=== PATIENT | female | born 2000 | race Caucasian/White ===

== ENCOUNTER 2021-02-20 12:08 | Inpatient (IN) ==
[2021-02-20 12:43] LABS: Bacteria,Urine Occasional /HPF (Few); Bilirubin,Urine Negative (Negative); Blood, Urine Negative (Negative); Glucose,Urine (UA) Negative (Negative); Ketones,Urine Negative (Negative); Mucus,Urine Occasional /LPF (Occasional); Nitrite,Urine Negative (Negative); Protein,Urine Negative; RBC,Urine 1 /HPF (0-4); Squamous Epithelial Cell,Urine Moderate /HPF (0-10); Urine Appearance Slightly Hazy (Clear); Urine Color Yellow (Yellow); Urine Specific Gravity 1.016 (1.001-1.035); Urine Urobilinogen < 2.0 EU/DL (0.2-1.0)
[2021-02-20] MEDS ORDERED: BUTORPHANOL 2 MG/ML VIAL IV PRN (15:56)
[2021-02-20] MEDS ORDERED: ONDANSETRON 4 MG/2 ML VIAL IV PRN (15:56)
[2021-02-20] MEDS ORDERED: MEPERIDINE 50 MG/1 ML VIAL IV PRN (15:56)
[2021-02-20 16:37] LABS: Hematocrit 34.4 VOL% (35.7-47.0); Hemoglobin 10.6 GM/DL (12.0-16.0); Immature Granulocytes % 0.4 %; Immature Granulocytes Absolute 0.02 #; Lymphocytes # 0.9 10*3/uL (1.4-4.0); Lymphocytes % 15.5 % (21.3-54.2); Mean Corpuscular HGB Conc 30.8 GM/DL (32-36); Mean Corpuscular Volume 76.6 FL (87-102); Mean Platelet Volume 11.8 FL (9.6-12.0); Neutrophils % 80.1 % (38.7-73.9); Platelet Count 138 T/CUMM (130-400); Red Blood Count 4.49 MC/CUMM (3.8-5.5); Red Cell Distribution Width 14.9 % (9.3-17.3); White Blood Count 5.6 T/CUMM (4-12)
[2021-02-20 19:52] LABS: Hepatitis B Surface Ag Quant < 0.10 Index; Hepatitis B Surface Ag Result Non-Reactive (NonReactive)
[2021-02-21] MEDS ORDERED: OXYTOCIN/LR 20 UNIT/1,000 ML BAG IV PRN (01:35)
[2021-02-21] MEDS: LACTATED RINGERS 1,000 ML IV SCH ×2 (04:10→07:52)
[2021-02-21] MEDS ORDERED: CITRIC ACID/SODIUM CITRATE 30 ML UDCUP PO ONE (05:11)
[2021-02-21] MEDS ORDERED: diphenhydrAMINE 50 MG/1 ML VIAL IV PRN ×2 (05:11)
[2021-02-21] MEDS ORDERED: NALOXONE 0.4 MG/ML VIAL IV PRN (05:11)
[2021-02-21] MEDS ORDERED: FAMOTIDINE 20 MG/2 ML VIAL IV ONE ×2 (05:11→05:12)
[2021-02-21] MEDS ORDERED: hydrOXYzine HCL 25 MG/1 ML VIAL IM PRN (05:11)
[2021-02-21] MEDS ORDERED: ONDANSETRON 4 MG/2 ML VIAL IV PRN ×2 (05:11→09:08)
[2021-02-21] MEDS ORDERED: ePHEDrine 50 MG/ML VIAL IV PRN (05:11)
[2021-02-21] MEDS ORDERED: PROMETHAZINE 25 MG/1 ML VIAL IM PRN (05:11)
[2021-02-21] MEDS ORDERED: LACTATED RINGERS 1,000 ML IV ONE (05:11)
[2021-02-21] MEDS ORDERED: CITRIC ACID/SODIUM CITRATE 30 ML UDCUP ONE (05:12)
[2021-02-21] MEDS ORDERED: fentaNYL 2 MCG/ROPIV 0.2% EPID 100 ML EPIDURAL SCH (05:30)
[2021-02-21] MEDS ORDERED: TRANEXAMIC ACID 1,000 MG/10 ML VIAL ONE (08:39)
[2021-02-21] MEDS ORDERED: miSOPROStoL 200 MCG TABLET ONE (08:39)
[2021-02-21] MEDS ORDERED: OXYTOCIN/LR 20 UNIT/1,000 ML BAG IV ONE ×2 (08:39→09:08)
[2021-02-21] MEDS ORDERED: CARBOPROST TROMETHAMINE 250 MCG/ML AMP IM ONE (08:40)
[2021-02-21] MEDS ORDERED: METHYLERGONOVINE 0.2 MG/1 ML AMP ONE (08:40)
[2021-02-21] MEDS ORDERED: oxyCODONE/ACETAMINOPHEN 5-325 MG TABLET PO PRN ×2 (09:08)
[2021-02-21] MEDS ORDERED: BISACODYL 10 MG SUPP RECTAL PRN (09:08)
[2021-02-21] MEDS ORDERED: BENZOCAINE 20%/MENTHOL 0.5% SPRAY 56 GM CAN TOP PRN (09:08)
[2021-02-21] MEDS ORDERED: RHO(D) IMMUNE GLOBULIN 300 MCG SYRINGE IM ONE (09:08)
[2021-02-21] MEDS ORDERED: ACETAMINOPHEN 325 MG TABLET PO PRN (09:08)
[2021-02-21] MEDS ORDERED: WITCH HAZEL PADS 100/JAR TOP PRN (09:08)
[2021-02-21] MEDS ORDERED: HYDROCORTISONE 2.5% RECTAL CREAM 30 GM TUBE TOP PRN (09:08)
[2021-02-21] MEDS ORDERED: LANOLIN 50% CREAM 0.3 OZ TUBE TOP PRN (09:08)
[2021-02-21] MEDS ORDERED: DIPH/TET/ACEL PERT BOOSTER VACCINE 0.5 ML VIAL IM ONE (09:08)
[2021-02-21] MEDS ORDERED: MEASLES/MUMPS/RUBELLA VACCINE 0.5 ML VIAL SUBCUT ONE (09:08)
[2021-02-21 09:16] LABS: Cord Arterial Blood HCO3 19.1 MMOL/L
[2021-02-21 09:17] LABS: Cord Venous Blood HCO3 20.5 MMOL/L; Cord Venous Blood PCO2 33.6 MMHG; Cord Venous Blood PO2 34.5
[2021-02-21 09:47] LABS: Urine Appearance Slightly Hazy (Clear); Urine Color Amber (Yellow)
[2021-02-21 09:48] LABS: Bilirubin,Urine Negative (Negative); Blood, Urine Negative (Negative); Glucose,Urine (UA) Negative (Negative); Ketones,Urine 3+ mg/dL (Negative); Nitrite,Urine Negative (Negative); Protein,Urine 2+ MG/DL; RBC,Urine Rare /HPF (0-4); Urine Specific Gravity 1.025 (1.001-1.035); Urine Urobilinogen < 2.0 EU/DL (0.2-1.0)
[2021-02-21 09:49] LABS: Mucus,Urine 1+ /LPF (Occasional); Squamous Epithelial Cell,Urine Few /HPF (0-10)
[2021-02-21] MEDS: METOPROLOL SUCCINATE XL 25 MG TABLET PO SCH (09:58)
[2021-02-21 11:44] VITALS: BP 117/58
[2021-02-21] MEDS: IBUPROFEN 800 MG TABLET PO PRN (13:19)
[2021-02-21] MEDS ORDERED: DOCUSATE SODIUM 100 MG CAPSULE PO SCH (21:00)
[2021-02-22 06:09] LABS: Basophils % 0.1 % (0.0-0.8); Hematocrit 32.4 VOL% (35.7-47.0); Immature Granulocytes % 0.8 %; Immature Granulocytes Absolute 0.06 #; Lymphocytes # 1.8 10*3/uL (1.4-4.0); Lymphocytes % 25.9 % (21.3-54.2); Mean Corpuscular HGB Conc 30.9 GM/DL (32-36); Mean Corpuscular Volume 77.1 FL (87-102); Mean Platelet Volume 10.8 FL (9.6-12.0); Monocytes % 4.4 % (1.7-12.7); Neutrophils % 68.8 % (38.7-73.9); Platelet Count 127 T/CUMM (130-400); Red Cell Distribution Width 15.2 % (9.3-17.3); White Blood Count 7.1 T/CUMM (4-12)
[2021-02-22 06:27] LABS: Hypochromasia 1+; Microcytosis 1+
[2021-02-22 06:28] LABS: Platelet Estimate Adequate
[2021-02-22 06:29] LABS: Polychromasia Slight
[2021-02-22] MEDS: IBUPROFEN 800 MG TABLET PO PRN (07:31)
[2021-02-22] MEDS: METOPROLOL SUCCINATE XL 25 MG TABLET PO SCH (08:37)
== END 2021-02-22 15:00 | disposition home or self-care (01) | DRG 805 ==
LOC: N.LDOUT 12:08 → N.LD 12:10
PROVIDERS: ADMIT Specialist; ATTEND Specialist

== ENCOUNTER 2022-09-16 19:54 | Inpatient (IN) ==
[2022-09-17] MEDS ORDERED: METHYLERGONOVINE 0.2 MG/1 ML AMP IM PRN
[2022-09-17] MEDS ORDERED: BUTORPHANOL 2 MG/ML VIAL IV PRN
[2022-09-17] MEDS ORDERED: MEPERIDINE 50 MG/1 ML VIAL IV PRN
[2022-09-17] MEDS ORDERED: TRANEXAMIC ACID 1,000 MG in SODIUM CHLORIDE 0.9% 100 ML IV PRN
[2022-09-17] MEDS ORDERED: miSOPROStoL 200 MCG TABLET RECTAL PRN
[2022-09-17] MEDS ORDERED: CARBOPROST TROMETHAMINE 250 MCG/ML AMP IM PRN
[2022-09-17 00:37] LABS: Basophils % 0.2 % (0.0-0.8); Eosinophils # 0.1 10*3/uL (0.0-0.87); Eosinophils % 1.2 % (0.00-10.9); Hemoglobin 10.9 GM/DL (12.0-16.0); Immature Granulocytes % 0.4 %; Immature Granulocytes Absolute 0.03 #; Lymphocytes # 2.6 10*3/uL (1.4-4.0); Lymphocytes % 32.6 % (21.3-54.2); Mean Corpuscular HGB Conc 32.1 GM/DL (32-36); Mean Corpuscular Volume 78.3 FL (87-102); Mean Platelet Volume 10.8 FL (9.6-12.0); Monocytes # 0.5 10*3/uL (0.11-0.8); Monocytes % 6.6 % (1.7-12.7); Platelet Count 196 T/CUMM (130-400); Red Blood Count 4.34 MC/CUMM (3.8-5.5); Red Cell Distribution Width 14.4 % (9.3-17.3); White Blood Count 8.07 T/CUMM (4-12)
[2022-09-17] MEDS: ONDANSETRON 4 MG/2 ML VIAL IV PRN ×2 (00:37→06:40)
[2022-09-17 00:53] LABS: Bilirubin,Direct < 0.100 MG/DL (0.0-0.20); Uric Acid 4.4 MG/DL (2.6-6.0)
[2022-09-17 00:53] LABS: INR 0.9; PT Patient Result 9.6 SECS (10.1-12.1); Partial Thromboplastin Time 25.5 SECS (23.7-32.9)
[2022-09-17 00:57] LABS: Alanine Aminotransferase 11 U/L (13-56); Albumin 2.6 G/DL (3.4-5.0); Alkaline Phosphatase 222 U/L (45-117); Aspartate Amino Transferase 15 U/L (0-37); Bilirubin,Total < 0.39 MG/DL (0.20-1.00); Blood Urea Nitrogen 13 MG/DL (7-18); Calcium 8.6 MG/DL (8.5-10.1); Carbon Dioxide 19 MMOL/L (21-32); Chloride 111 MMOL/L (98-107); Glucose 85 MG/DL (74-106); Osmolality,Calculated 275.5 MOS/KG (273-304); Potassium 3.8 MMOL/L (3.5-5.1); Sodium 139 MMOL/L (136-145)
[2022-09-17] MEDS: LACTATED RINGERS 1,000 ML IV SCH ×2 (05:25→07:54)
[2022-09-17] MEDS ORDERED: OXYTOCIN/LR 20 UNIT/1,000 ML BAG IV SCH (05:30)
[2022-09-17] MEDS ORDERED: NALOXONE 0.4 MG/ML VIAL IV PRN (06:35)
[2022-09-17] MEDS ORDERED: PROMETHAZINE 25 MG/1 ML VIAL IM ONE (06:35)
[2022-09-17] MEDS ORDERED: LACTATED RINGERS 1,000 ML IV ONE (06:35)
[2022-09-17] MEDS ORDERED: hydrOXYzine HCL 25 MG/1 ML VIAL IM PRN (06:35)
[2022-09-17] MEDS ORDERED: diphenhydrAMINE 50 MG/1 ML VIAL IV PRN ×2 (06:35)
[2022-09-17] MEDS ORDERED: ePHEDrine 50 MG/ML VIAL IV PRN (06:35)
[2022-09-17] MEDS ORDERED: FAMOTIDINE 20 MG/2 ML VIAL IV ONE (07:00)
[2022-09-17] MEDS ORDERED: CITRIC ACID/SODIUM CITRATE 30 ML UDCUP PO ONE (07:00)
[2022-09-17] MEDS ORDERED: LACTATED RINGERS 1,000 ML IV SCH (07:00)
[2022-09-17] MEDS ORDERED: fentaNYL 2 MCG/ROPIV 0.2% EPID 100 ML EPIDURAL SCH (07:00)
[2022-09-17 09:37] LABS: Mucus,Urine Few /LPF (Occasional); RBC,Urine 1 /HPF (0-4); Squamous Epithelial Cell,Urine Occasional /HPF (0-10)
[2022-09-17 09:38] LABS: Urine Appearance Clear (Clear); Urine Color Yellow (Yellow)
[2022-09-17 09:39] LABS: Bilirubin,Urine Negative (Negative); Blood, Urine Negative (Negative); Glucose,Urine (UA) Negative (Negative); Ketones,Urine Negative (Negative); Nitrite,Urine Negative (Negative); Protein,Urine Negative (Negative); Urine Specific Gravity 1.025 (1.001-1.035); Urine Urobilinogen 0.2 eU/dL (<2.0)
[2022-09-17 10:43] LABS: Cord Venous Blood HCO3 21.8 MMOL/L; Cord Venous Blood PCO2 34.2 MMHG; Cord Venous Blood PO2 27.9
[2022-09-17] MEDS ORDERED: IBUPROFEN 800 MG TABLET PO PRN ×2 (15:49→19:03)
[2022-09-17] MEDS ORDERED: RHO(D) IMMUNE GLOBULIN 300 MCG SYRINGE IM ONE (19:03)
[2022-09-17] MEDS ORDERED: DIPH/TET/ACEL PERT BOOSTER VACCINE 0.5 ML VIAL IM ONE (19:03)
[2022-09-17] MEDS ORDERED: ACETAMINOPHEN 325 MG TABLET PO PRN (19:03)
[2022-09-17] MEDS ORDERED: HYDROCORTISONE 2.5% RECTAL CREAM 30 GM TUBE TOP PRN (19:03)
[2022-09-17] MEDS ORDERED: LANOLIN 50% CREAM 0.3 OZ TUBE TOP PRN (19:03)
[2022-09-17] MEDS ORDERED: BISACODYL 10 MG SUPP RECTAL PRN (19:03)
[2022-09-17] MEDS ORDERED: OXYTOCIN/LR 20 UNIT/1,000 ML BAG IV ONE ×2 (19:03)
[2022-09-17] MEDS ORDERED: WITCH HAZEL PADS 100/JAR TOP PRN (19:03)
[2022-09-17] MEDS ORDERED: MEASLES/MUMPS/RUBELLA VACCINE 0.5 ML VIAL SUBCUT ONE (19:03)
[2022-09-17] MEDS ORDERED: ONDANSETRON 4 MG/2 ML VIAL IV PRN (19:03)
[2022-09-17] MEDS ORDERED: oxyCODONE/ACETAMINOPHEN 5-325 MG TABLET PO PRN ×2 (19:03)
[2022-09-17] MEDS ORDERED: BENZOCAINE 20%/MENTHOL 0.5% SPRAY 56 GM CAN TOP PRN (19:03)
[2022-09-17] MEDS: DOCUSATE SODIUM 100 MG CAPSULE PO SCH (21:29)
[2022-09-18 05:15] LABS: Basophils % 0.2 % (0.0-0.8); Eosinophils # 0.1 10*3/uL (0.0-0.87); Eosinophils % 0.9 % (0.00-10.9); Hematocrit 32.3 VOL% (35.7-47.0); Hemoglobin 10.2 GM/DL (12.0-16.0); Immature Granulocytes % 0.5 %; Immature Granulocytes Absolute 0.04 #; Lymphocytes % 23.3 % (21.3-54.2); Mean Corpuscular HGB Conc 31.6 GM/DL (32-36); Mean Platelet Volume 10.9 FL (9.6-12.0); Monocytes # 0.5 10*3/uL (0.11-0.8); Monocytes % 6.2 % (1.7-12.7); Neutrophils % 68.9 % (38.7-73.9); Platelet Count 158 T/CUMM (130-400); Red Blood Count 4.09 MC/CUMM (3.8-5.5); Red Cell Distribution Width 14.5 % (9.3-17.3); White Blood Count 8.49 T/CUMM (4-12)
[2022-09-18] MEDS: DOCUSATE SODIUM 100 MG CAPSULE PO SCH ×2 (08:56→20:47)
[2022-09-19 07:23] VITALS: BP 120/68
[2022-09-19] MEDS: DOCUSATE SODIUM 100 MG CAPSULE PO SCH (08:15)
[2022-09-19] MEDS: amLODIPine 10 MG TABLET PO SCH ×2 (11:55→11:56)
[2022-09-19] MEDS: METOPROLOL SUCCINATE XL 25 MG TABLET PO SCH (11:57)
== END 2022-09-19 11:27 | disposition home or self-care (01) | DRG 807 ==
LOC: N.LDOUT 19:54 → N.LD 19:57 → N.OB 09-17 13:04
PROVIDERS: ADMIT Specialist; ATTEND Specialist